=== PATIENT | male | born 1955 | race African-American/Black ===

== ENCOUNTER 2020-04-09 08:18 | Emergency (ER) | payer OTHER ==
[~2020-04-09] VITALS: Ht 185.4 cm; Wt 91.0 kg
[2020-04-09] MEDS ORDERED: SODIUM CHLORIDE 0.9% 1,000 ML IV ONE (09:59)
[2020-04-09 10:20] LABS: BASOPHILS % 0.7 % (0.0-2.0); HEMATOCRIT. 40.3 % (42.0-52.0); HEMOGLOBIN. 13.6 g/dL (14.0-18.0); LYMPHOCYTES % 17.4 % (20.0-50.0); MEAN CORPUSCULAR HEMOGLOBIN 29.2 pg (28.0-32.0); MEAN CORPUSCULAR VOLUME 86.6 fL (80.0-94.0); MEAN PLATELET VOLUME 8.3 fl (7.4-10.4); MONOCYTES % 6.8 % (2.0-8.0); NEUTROPHILS % 75.1 % (40.0-76.0); PLATELET 218 x1000/uL (130-400); RED BLOOD CELL COUNT 4.66 mill/uL (4.7-6.1); RED CELL DISTRIBUTION WIDTH 14.7 % (11.6-14.6)
[2020-04-09 10:27] LABS: CHLORIDE 105 mEq/L (98-107)
[2020-04-09 12:00] VITALS: BP 107/43
== END 2020-04-09 12:18 | disposition home or self-care (01) ==
LOC: ER 08:18
DX: R55 Syncope and collapse (principal); R03.0 Elevated blood-pressure reading, without diagnosis of hypertension; E11.9 Type 2 diabetes mellitus without complications
CPT/HCPCS: 36415; 70450; 71045; 80053; 84484; 85025; 93005; 99285; J7030